=== PATIENT | female | born 1935 | race Two or more races ===

== ENCOUNTER 2023-11-29 10:55 | Emergency (ER) | payer MEDICARE, OTHER ==
[~2023-11-29] VITALS: Ht 165.1 cm; Wt 80.0 kg
[2023-11-29 11:02] VITALS: TEMP 98.4; O2SAT 96
[2023-11-29] MEDS: ACETAMINOPHEN 325MG TABLET PO ONE (13:00)
[2023-11-29 13:35] LABS: BASOPHILS % 0.7 % (0.0-2.0); EOSINOPHILS % 0.3 % (0.0-5.0); HEMATOCRIT. 44.3 % (36.0-48.0); HEMOGLOBIN. 14.9 g/dL (12.0-16.0); LYMPHOCYTES % 17.2 % (20.0-50.0); MEAN CORPUSCULAR HEMOGLOBIN 30.9 pg (28.0-32.0); MEAN CORPUSCULAR HGB CONC 33.6 g/dL (31.0-37.0); MEAN CORPUSCULAR VOLUME 91.9 fL (81.0-99.0); MEAN PLATELET VOLUME 7.4 fl (7.4-10.4); NEUTROPHILS % 75.8 % (40.0-76.0); PLATELET 374 x1000/uL (130-400); RED BLOOD CELL COUNT 4.82 mill/uL (4.2-5.4); RED CELL DISTRIBUTION WIDTH 13.7 % (11.6-14.6); WHITE BLOOD COUNT 9.5 x1000/uL (4.5-11.0)
[2023-11-29 13:40] LABS: CHLORIDE 106 mEq/L (98-107); POTASSIUM 4.3 mEq/L (3.5-5.1); SODIUM 138 mEq/L (136-145)
[2023-11-29 13:41] LABS: CARBON DIOXIDE 30 mEq/L (21-32)
[2023-11-29 13:42] LABS: CALCIUM 10.2 mg/dL (8.7-10.4)
[2023-11-29 13:44] LABS: INR 0.9; PROTHROMBIN TIME 10.3 sec (9.6-11.0)
[2023-11-29 13:46] LABS: CREATININE 0.8 mg/dL (0.6-1.0); GLUCOSE 106 mg/dL (70-105)
[2023-11-29 13:47] LABS: UREA NITROGEN BLOOD 9 mg/dL (9-23)
[2023-11-29 13:48] LABS: TROPONIN I HIGH SENSITIVITY 8 ng/L (3.0-34)
[2023-11-29] MEDS ORDERED: ACET-2708 MT (13:54)
[2023-11-29 14:08] VITALS: BP 141/63; PULSE 75; RESP 15; O2SAT 97
== END 2023-11-29 14:09 | disposition home or self-care (01) ==
LOC: ER 10:55
DX: S20.219A Contusion of unspecified front wall of thorax, initial encounter (principal); I10 Essential (primary) hypertension; V49.9XXA Car occupant (driver) (passenger) injured in unspecified traffic accident, initial encounter; Y93.89 Activity, other specified; Y92.89 Other specified places as the place of occurrence of the external cause; Y99.8 Other external cause status
CPT/HCPCS: 36415; 71045; 80048; 84484; 85025; 93005; 99285